=== PATIENT | female | born 1980 | race African-American/Black ===

== ENCOUNTER 2018-04-16 17:35 | Emergency (ER) | payer MEDICAID ==
[~2018-04-16] VITALS: Ht 162.6 cm; Wt 89.4 kg
[2018-04-16 17:42] VITALS: Ht 162.6 cm; Wt 89.4 kg
[2018-04-16 18:35] LABS: BASOPHIL % 0.1 % (0-2); PLATELET COUNT 329 x10^3mcL (130-400); RED CELL DISTRIBUTION WIDTH 14.2 % (11.5-14.5)
[2018-04-16 18:41] LABS: CARBON DIOXIDE 20.3 mmol/L (21-32); CHLORIDE SERUM 98 mmol/L (98-107); GFR1 > 60 mL/min; GLUCOSE SERUM 386 mg/dL (74-106); POTASSIUM SERUM 3.7 mmol/L (3.5-5.1); SODIUM SERUM 132 mmol/L (136-145)
[2018-04-16 19:28] VITALS: BP 135/78
== END 2018-04-16 19:28 | disposition home or self-care (01) ==
LOC: ED 17:35
PROVIDERS: Emergency Medicine
DX: O24.419 Gestational diabetes mellitus in pregnancy, unspecified control (principal); Z3A.01 Less than 8 weeks gestation of pregnancy
CPT/HCPCS: 82962; J1815

== ENCOUNTER 2018-05-29 13:28 | Emergency (ER) | payer SELFPAY ==
[~2018-05-29] VITALS: Ht 162.6 cm; Wt 90.7 kg
[2018-05-29 13:45] VITALS: Ht 162.6 cm; Wt 90.7 kg
[2018-05-29 15:00] LABS: UA SPECIFIC GRAVITY >=1.030 (1.005-1.035); microscopic required? YES; urine erythrocyte NEGATIVE (NEGATIVE)
[2018-05-29 15:07] LABS: BASOPHIL % 0.3 % (0-2); PLATELET COUNT 333 x10^3mcL (130-400); RED CELL DISTRIBUTION WIDTH 14.1 % (11.5-14.5)
[2018-05-29 15:40] LABS: CALCIUM 9.2 mg/dL (8.5-10.1); CARBON DIOXIDE 22.5 mmol/L (21-32); CHLORIDE SERUM 102 mmol/L (98-107); CREATININE SERUM 0.9 mg/dL (0.6-1.0); GFR1 > 60 mL/min; GLUCOSE SERUM 251 mg/dL (74-106); POTASSIUM SERUM 3.7 mmol/L (3.5-5.1); SODIUM SERUM 136 mmol/L (136-145)
[2018-05-29 15:46] LABS: ALKALINE PHOSPHATASE 46 U/L (46-116); ALT/SGPT 23 U/L (14-59); AMYLASE 66 U/L (25-115); LIPASE 147 IU/L (73-393); TOTAL PROTEIN, SERUM 7.4 g/dL (6.4-8.2)
[2018-05-29 15:52] LABS: ALBUMIN 3.1 g/dL (3.4-5.0)
[2018-05-29 15:59] LABS: AST/SGOT 15 U/L (15-37)
[2018-05-29 17:33] VITALS: BP 134/84
== END 2018-05-29 17:33 | disposition home or self-care (01) ==
LOC: ED 13:28
PROVIDERS: Emergency Medicine
DX: O23.42 Unspecified infection of urinary tract in pregnancy, second trimester (principal); O24.312 Unspecified pre-existing diabetes mellitus in pregnancy, second trimester; E11.9 Type 2 diabetes mellitus without complications; E66.9 Obesity, unspecified; Z3A.15 15 weeks gestation of pregnancy; Z68.34 Body mass index [BMI] 34.0-34.9, adult; Z90.89 Acquired absence of other organs
CPT/HCPCS: 82962; J1815; J3411; J7030